=== PATIENT | female | born 1995 | race Two or more races ===

== ENCOUNTER 2021-11-14 09:15 | Inpatient (IN) | payer OTHER ==
[~2021-11-14] VITALS: Ht 170.2 cm; Wt 109.8 kg
[2021-11-17] MEDS ORDERED: COMPLETE NATAL1 EACH PO (07:38)
== END 2021-11-20 12:39 | DRG 788 ==
LOC: LDR 11-17 07:00 → OB/GYN 11-17 07:23 → O/R 11-17 07:23 → LDR 11-17 09:15 → OB/GYN 11-17 15:38
PROVIDERS: Obstetrics & Gynecology; ADMIT Obstetrics & Gynecology; ATTEND Obstetrics & Gynecology
PROC: 4A1HXCZ Monitoring of Products of Conception, Cardiac Rate, External Approach (ICD-10-PCS; 2021-11-17)
PROC: 10D00Z1 Extraction of Products of Conception, Low, Open Approach (ICD-10-PCS; principal; 2021-11-17 07:00)
DX: O32.1XX0 Maternal care for breech presentation, not applicable or unspecified (principal); Z3A.39 39 weeks gestation of pregnancy; Z37.0 Single live birth; Z20.822 Contact with and (suspected) exposure to COVID-19

== ENCOUNTER 2024-01-22 11:43 | Outpatient (CLI) | payer OTHER ==
[~2024-01-22 11:43] MED LIST: COMPLETE NATAL1 EACH PO
== END 2024-01-22 11:56 | disposition home or self-care (01) ==
LOC: RAD 11:43
PROVIDERS: ATTEND Orthopaedic Surgery
DX: M25.562 Pain in left knee (principal)

== ENCOUNTER 2024-03-09 08:48 | Outpatient (CLI) | payer OTHER ==
[2024-03-09 09:33] LABS: HEMATOCRIT 41.2 % (36.0-45.00); HEMOGLOBIN 14.2 g/dL (12.0-15.00); MEAN CELL VOLUME 89.8 fL (80.00-100.00); MEAN CORPUSCULAR HEMOGLOBIN 31.1 pg (27.00-32.0); MEAN CORPUSCULAR HGB CONC 34.6 g/dl (32.0-36.0); PLATELET COUNT 271 K/uL (150-450); RED BLOOD COUNT 4.58 M/uL (4.00-6.00); RED CELL DISTRIBUTION WIDTH 13.2 % (11.5-14.5)
[2024-03-09 09:39] VITALS: BP 115/71
[2024-03-09 09:47] LABS: PH,URINE 7.5 (5.0-8.0); URINE APPEARANCE Clear; URINE BILIRRUBIN Negative (NEGATIVE); URINE BLOOD Negative; URINE COLOR Yellow; URINE GLUCOSE Negative (NEGATIVE); URINE KETONE Negative (NEGATIVE); URINE LEUKOCYTE Negative; URINE NITRATE Negative; URINE PROTEIN Negative (NEGATIVE); URINE UROBILINOGEN 0.2 E.U./dl
[2024-03-09 09:56] LABS: COL EPI 91 SECONDS (82-175)
[2024-03-09 09:58] LABS: URINE BACTERIA 26.4 uL (0.0-1933); URINE EPITHELIAL CELLS 4.7 uL (0.0-38.8); URINE RBC 5.3 uL (0.0-20.8)
[2024-03-09 10:03] LABS: URINE WBC 0.9 uL (0.0-23.2)
[2024-03-09 10:16] LABS: INR 1.02; PARTIAL THROMBOPLASTIN TIME 26.2 SECONDS (22.0-34.0); PROTHROMBIN TIME 11.1 SECONDS (9.0-11.5)
[2024-03-09 10:27] LABS: ALBUMIN 4.1 gm/dL (3.4-5.0); BILIRUBIN TOTAL 0.59 mg/dL (0.3-1.2); CALCIUM 9.3 mg/dL (8.5-10.1); CREATININE SERUM 0.75 mg/dL (0.55-1.02); GFR 91.36; POTASSIUM 3.88 mEq/L (3.5-5.1); TOTAL PROTEIN 7.1 gm/dL (6.4-8.2)
== END 2024-03-09 08:49 | disposition home or self-care (01) ==
LOC: RAD 08:48
PROVIDERS: ATTEND Orthopaedic Surgery
DX: D64.9 Anemia, unspecified (principal); E88.89 Other specified metabolic disorders; D68.8 Other specified coagulation defects; N39.0 Urinary tract infection, site not specified; Z22.322 Carrier or suspected carrier of Methicillin resistant Staphylococcus aureus; E11.9 Type 2 diabetes mellitus without complications; I10 Essential (primary) hypertension; Z76.89 Persons encountering health services in other specified circumstances